=== PATIENT | female | born 1970 | race African-American/Black ===

== ENCOUNTER → 2016-11-24 | Day surgery (SDC) | payer OTHER ==
--- NOTE | 2016-11-25 15:47 | PATH ---
Surgical Pathology Report Patient Name: ALICIA MATHUR [facility]. Rec. #: [id number] /Age/Gender: 1970 (Age: 46) / F Account: [id number] Location: [facility] RADIOLOGY U Taken: 11/24/2016 Received: 11/24/2016 Reported: 11/25/2016 Physicians: Mark Moore M.D. Specimen(s) Received RIGHT BREAST 1 O'CLOCK 4CM FN CORE BIOPSY Clinical History US findings: Probably benign Final Diagnosis BREAST, RIGHT, 1:00, 4 CM FROM NIPPLE, US GUIDED CORE BIOPSY: FIBROADENOMATOID CHANGE AND FIBROCYSTIC CHANGE WITH DUCT DILATATION AND STROMAL FIBROSIS. Electronically Signed Doug Dalal M.D. Gross Description Received in formalin, labeled "right breast 1:00 4 cmFN" are five cylindrical fragments of avery-white and yellow tissue ranging from 0.5-1.2 cm in length and averaging 0.2 cm in diameter. Submitted entirely in one cassette. Time to fixation: 2min Formalin fixation time:~20h AF/11/25/2016 final/11/25/2016
== END | disposition home or self-care (01) ==
LOC: FRADUS-SUR 13:33
PROVIDERS: ATTEND Internal Medicine
PROC: 0HBT3ZX Excision of Right Breast, Percutaneous Approach, Diagnostic (ICD-10-PCS; principal; 2016-11-24)
DX: N63 Unspecified lump in breast (principal); N60.31 Fibrosclerosis of right breast; N64.89 Other specified disorders of breast
CPT/HCPCS: 19083; 87899; 88305-TC; A4648; G0206-TC

== ENCOUNTER 2018-09-06 10:44 | Emergency (ER) | payer OTHER ==
[2018-09-06 10:54] VITALS: BP 120/69; PULSE 77; TEMP 98.2; BMI 28.3
[2018-09-06] MEDS ORDERED: IBUPROFEN 600 MG TABLET (FP) PO ONE ×2 (11:31→11:34)
[2018-09-06] MEDS ORDERED: SILVER SULFADIAZINE 1% TOP CREAM 50 GM JAR TP ONE ×2 (11:31→11:34)
--- NOTE | 2018-09-06 11:37 | PDOC ---
History of Present Illness - General Chief Complaint: Burn Stated Complaint: BURN Time Seen by Provider: 09/06/18 11:15 History Source: Patient Exam Limitations: No Limitations - History of Present Illness Initial Comments: 09/06/18 11:53 While making hot water for T this morning, patient's neurologic disorder status post carpal tunnel surgeries caused her hand to become numb and causing her to drop hot water spilling onto her left forearm. States states incident occurred approximately 2-1/2 hours ago. Went to another urgent care but was not being tended to therefore came to emergency department for evaluation. Occurred: reports: just prior to arrival, this morning Severity: reports: moderate Pain Location: reports: upper extremity (left forearm) Associated Symptoms (Fall): denies symptoms Past History - Travel Traveled outside of the country in the last 30 days: No Close contact w/someone who was outside of country & ill: No - Past Medical History Allergies/Adverse Reactions: Allergies Allergy/AdvReac Type Severity Reaction Status Date / Time No Known Allergies Allergy Unverified 09/06/18 10:54 Home Medications: Ambulatory Orders NK [No Known Home Medication] 09/06/18 COPD: No GI Disorders: Yes (ULCER) Other medical history: RSD - Suicide/Smoking/Psychosocial Hx Smoking Status: Yes Smoking History: Never smoked Number of Cigarettes Smoked Daily: 2 Information on smoking cessation initiated: No Hx Alcohol Use: No Drug/Substance Use Hx: No Substance Use Type: None, Marijuana Review of Systems - Review of Systems Able to Perform ROS?: Yes Is the patient limited [place]an proficient: Yes Constitutional: Yes: Symptoms Reported, See HPI, Malaise Musculoskeletal: Yes: Symptoms Reported, See HPI, Muscle Pain. No: Joint Pain Integumentary: Yes: Symptoms Reported, See HPI, Erythema (left forearm ), Lesions Neurological: No: Symptoms reported All Other Systems: Reviewed and Negative *Physical Exam - Vital Signs Last Vital Signs Temp Pulse Resp BP Pulse Ox 98.2 F 77 19 120/69 100 09/06/18 10:52 09/06/18 10:52 09/06/18 10:52 09/06/18 10:52 09/06/18 10:52 - Physical Exam General Appearance: Yes: Nourished, Appropriately Dressed, Apparent Distress, Moderate Distress HEENT: positive: ARAVIND, Normal ENT Inspection, TMs Normal, Pharynx Normal Neck: positive: Supple. negative: Tender Respiratory/Chest: positive: Lungs Clear, Normal Breath Sounds Gastrointestinal/Abdominal: positive: Soft Musculoskeletal: positive: Normal Inspection. negative: CVA Tenderness Extremity: positive: Normal Capillary Refill, Normal Range of Motion Integumentary: positive: Normal Color, Other (superficial and deep partial- thickness alan noted to left forearm extending from elbow down to rest. 3 places blistering noted. Erythema and other alan are non-circumferential, only noted on the dorsum of forearm, no hand involvement. Has full range of motion to hand and strong grasp.) Neurologic: positive: imaging system administrator II-XII NML intact, Fully Oriented, Alert, Normal Mood/ Affect, Normal Response, Motor Strength 5/5 Progress Note - Progress Note Progress Note: Superficial and partial-thickness alan of left arm Medical Decision Making - Medical Decision Making 09/06/18 12:44 Much improved after 1 hour of soaking in ice water compresses. Erythema reduced , and partial-thickness alan much less painful. Covered with Silvadene, Telfa, and dressing. Patient tolerated well and ready for discharge. 09/06/18 12:51 *DC/Admit/Observation/Transfer Diagnosis at time of Disposition: Burn of forearm, left Qualifiers: Encounter type: initial encounter Burn degree: partial thickness (2nd degree) Qualified Code(s): T22.212A - Burn of second degree of left forearm, initial encounter - Discharge Dispostion Disposition: HOME Condition at time of disposition: Stable Decision to Admit order: No - Referrals Referrals: Felipe Max MD, MD [Primary Care Provider] - - Patient Instructions Printed Discharge Instructions: DI for Alan Additional Instructions: Rest, elevate area if possible Lots of fluids to keep well hydrated Keep area clean and reapply antimicrobial/bacitracin/Silvadene cream lightly, as directed and cover with Telfa dressings/nonstick dressings as directed twice a day until wound healed Ibuprofen for pain relief, anti-inflammatory and antiprostaglandin effects See private physician in one to 2 days for wound check as needed Return to emergency department for worsening swelling, pain, evidence of infection - Post Discharge Activity Forms/Work/School Notes: Back to Work
[2018-09-06] MEDS ORDERED: DIPHTH,PERTUSS(ACELL),TET 0.5 ML DISP.SYRIN IM ONE (12:45)
== END 2018-09-06 12:55 | disposition home or self-care (01) ==
LOC: JERFT 10:44
PROC: 2W2DX4Z Dressing of Left Lower Arm using Bandage (ICD-10-PCS; principal; 2018-09-06)
PROC: 3E0234Z Introduction of Serum, Toxoid and Vaccine into Muscle, Percutaneous Approach (ICD-10-PCS; 2018-09-06)
DX: T22.212A Burn of second degree of left forearm, initial encounter (principal); Z72.0 Tobacco use
CPT/HCPCS: 90715; 99281-25

== ENCOUNTER 2018-11-18 07:14 | Emergency (ER) | payer OTHER ==
[2018-11-18 07:48] VITALS: BP 123/79; PULSE 82; TEMP 98.5; BMI 25.7
--- NOTE | 2018-11-18 07:55 | PDOC ---
History of Present Illness - General Chief Complaint: Pain Stated Complaint: LEFT NECK ARM PAIN Time Seen by Provider: 11/18/18 07:52 - History of Present Illness Initial Comments: Lizbeth Flaherty is a 48yo woman with a PMH of left carpal tunnel syndrome complicated by left upper extremity chronic regional pain syndrome who presents with worsening of her typical LUE pain over the past several weeks. Ms Flaherty reports that she has had chronic LUE pain for the past 5 years, and she has tried numerous medications, surgery, splints, and other treatments to help without significant improvement. Currently, she has been prescribed Percocet (10/325) and gabapentin (800mg) that she takes every 6 hours with minimal relief. Over the past approximately 3 weeks, her pain has been gradually worsening. She says that usually, she starts getting numbness in her fingers followed by pain and pressure in her wrist. The pain then travels up to her shoulder. Currently, the pain has been extending past her shoulder into her neck. She says that at this point the pain is so severe that she has been unable to eat or sleep. She went to see her pain specialist on Tuesday, but the new medication that they planned to try has not yet been approved by her insurance. She has been using OTC ibuprofen 400mg every 4 hours instead. Ms Flaherty does report that she had a short course of steroids two weeks ago, which helped significantly with her symptoms for a while, but the pain has since returned. She reports that she was told at this point that she would need to go to the ED if she needed additional medication. Past History - Past Medical History Allergies/Adverse Reactions: Allergies Allergy/AdvReac Type Severity Reaction Status Date / Time No Known Allergies Allergy Verified 11/18/18 07:37 Home Medications: Ambulatory Orders Gabapentin [Neurontin -] 300 mg PO QID 11/18/18 Oxycodone HCl/Acetaminophen [Percocet 10-325 mg Tablet] 2 each PO QID PRN predniSONE [Deltasone -] 40 mg PO DAILY #5 tablet 11/18/18 COPD: No GI Disorders: Yes (ULCER) - Immunization History Immunization Up to Date: Yes - Suicide/Smoking/Psychosocial Hx Smoking Status: Yes Smoking History: Never smoked Number of Cigarettes Smoked Daily: 2 Hx Alcohol Use: No Drug/Substance Use Hx: No Substance Use Type: None, Marijuana Review of Systems - Review of Systems Comments:: General: No fevers, no chills, no weight or appetite change, no malaise HEENT: No changes in vision, no changes in hearing, no congestion, no sore throat CV: No chest pain, no palpitations, no LE edema Pulm: No SOB, no cough, no wheezing GI: No nausea or vomiting, no change in bowel habits, no melena : No frequency, no urgency, no dysuria Musc: See HPI Skin: No rash, no lesions, no erythema Endo: No excessive thirst, no heat/cold intolerance Heme: No unusual bruising or bleeding, no swollen glands Neuro: No syncope, no numbness/tingling, no focal weakness Vasc: No claudication Psych: No recent change in mood, no SI or HI *Physical Exam - Vital Signs Last Vital Signs Temp Pulse Resp BP Pulse Ox 98.5 F 82 16 123/79 99 11/18/18 07:37 11/18/18 07:37 11/18/18 07:37 11/18/18 07:37 11/18/18 07:37 - Physical Exam Comments: General: Comfortable, no acute distress HEENT: PERRL, EOMI, MMM, voice normal, normal neck ROM, no LAD Cards: RRR, no murmur appreciated Pulm: Comfortable on room air, clear to auscultation bilaterally Abd: Soft, nontender, nondistended Ext: Atraumatic. No LE edema. ROM intact. Strength 5/5 in RUE and 4/5 in LUE with poor effort in LUE. Vasc: Extremities WWP. Palpable radial pulses bilaterally Skin: Normal color, no rashes or lesions Neuro: A&Ox3, CN grossly intact, normal speech, sensation grossly intact b/l Psych: Tearful Moderate Sedation - Procedure Monitoring Vital Signs: Procedure Monitoring Vital Signs Temperature 98.5 F 11/18/18 07:37 Pulse Rate 82 11/18/18 07:37 Respiratory Rate 16 11/18/18 07:37 Blood Pressure 123/79 11/18/18 07:37 O2 Sat by Pulse Oximetry (%) 99 11/18/18 07:37 Medical Decision Making - Medical Decision Making 11/18/18 08:12 Lizbeth Flaherty is a 48yo woman with a PMH of chronic regional pain syndrome and carpal tunnel syndrome in her LUE who presents with an exacerbation of her chronic left arm and shoulder pain. - No sign or history of recent injury. Increased pain intensity but no change in quality from chronic symptoms - Currently taking gabapentin 800mg q6, percocet 10mg approx q6, OTC ibuprofen 400mg q4 without improvement. Recently given a steroid burst 2 weeks ago, which she states helped - Will most likely give additional steroid burst that can be taken at home until she can see her pain specialist during the week 11/18/18 08:48 - After discussion with Dr Nolasco, will prescribe 40mg prednisone for 5 days - Discussed in detail with Ms Flaherty. She agrees with this plan. Discussed with Dr Nolasco. Tammy Matthew PGY1 *DC/Admit/Observation/Transfer Diagnosis at time of Disposition: Pain of left upper extremity - Discharge Dispostion Disposition: HOME Condition at time of disposition: Stable Decision to Admit order: No - Prescriptions Prescriptions: predniSONE [Deltasone -] 40 mg PO DAILY #5 tablet - Referrals Referrals: Felipe Max MD, MD [Primary Care Provider] - - Patient Instructions Printed Discharge Instructions: DI for Chronic Pain -- Adult Additional Instructions: Discharge Instructions: - You were seen in the emergency department for worsening of your chronic left arm pain. - You have been prescribed a steroid, prednisone, that should be taken daily at home. This should help with the pain and inflammation in your arm. - If you have stomach irritation, you may wish to take Pepcid, Zantac or any over the counter acid medication daily until your course of steroids has been completed. - Continue to take all of your previously prescribed medications as directed. - If you continue to use ibuprofen for pain at home, you may take 600mg (3 tablets) every 6-8 hours. You should take this medication with food to help reduce stomach irritation - Make an appointment to see your pain specialist within the next 2-3 days for follow up. - Seek immediate medical care if your symptoms worsen significantly, you have sudden weakness, numbness or tingling in your arm, or the quality (type) of pain changes suddenly. - Post Discharge Activity
[2018-11-18] MEDS ORDERED: predniSONE 20 MG TABLET (UD) PO ONE (08:50)
[2018-11-18] MEDS ORDERED: predniSONE 20 MG TABLET (UD) ONE (09:01)
--- NOTE | 2018-11-18 09:10 | PDOC ---
Attending Attestation - Resident Resident Name: TiffTammy - ED Attending Attestation I have performed the following: I have examined & evaluated the patient, The case was reviewed & discussed with the resident, I agree w/resident's findings & plan, Exceptions are as noted - HPI HPI: 11/18/18 08:44 48 year old female with hx of chronic regional pain syndrome and left carpal tunnel syndrome presents with worsening chronic pain. The patient has been taking oxycodone, gabapentin for the pain. She has seen a pain doctor and multiple specialists but the pain has been increasingly worse. Endorses chronic left arm pain. ~2 weeks ago received steroid injections with improvement of symptoms. But since steroids worn off, the pain returned. She has an appointment in the [facility] for a ketamine infusion protocol for CRPS, but pt is afraid of the medication. Pt has been having insurance issues so came to ED. - Physicial Exam PE: 11/18/18 09:10 GENERAL: Awake, alert, and fully oriented, +tearful HEAD: No signs of trauma EYES: EOMI, sclera anicteric, conjunctiva clear ENT: Auricles normal inspection, hearing grossly normal, nares patent, oropharynx clear without exudates. Moist mucosa NECK: Normal ROM, supple ABDOMEN: Soft, nontender, No guarding, no rebound. No masses EXTREMITIES: Normal range of motion, no edema. No clubbing or cyanosis. No cords, erythema, or tenderness NEUROLOGICAL: Cranial nerves II through XII grossly intact. Normal speech, SKIN: Warm, Dry, normal turgor, no rashes or lesions noted. - Medical Decision Making 11/18/18 09:10 Vital Signs Temp Pulse Resp BP Pulse Ox 98.5 F 82 16 123/79 99 11/18/18 07:37 11/18/18 07:37 11/18/18 07:37 11/18/18 07:37 11/18/18 07:37 Impressions: acute on chronic pain 2/2 CRPS After lengthy discussion, will initiate on short dose oral prednisone x 5 days. I did given her a lengthy discussion regardings ketamine in general. I advised that it would be a good decision to at least have a discussion with the hospital in regards to ketamine procotol. Pt feels reassured and will follow up. She is agreeable for plan.
== END 2018-11-18 08:58 | disposition home or self-care (01) ==
LOC: JER 07:14
DX: M79.602 Pain in left arm (principal); G89.4 Chronic pain syndrome
CPT/HCPCS: 99281-25